=== PATIENT | male | born 1950 | race Hispanic/Latino ===

== ENCOUNTER 2016-10-19 10:57 | Emergency (ER) | payer SELFPAY ==
--- NOTE | 2016-10-19 12:03 | Emergency Department Report ---
ED Male HPI - General Stated complaint: UNIRNARY RETENTION Time Seen by Provider: 10/19/16 11:50 - History of Present Illness Initial comments: 66-year-old male with a history of prostate enlargement here with several days of difficulty urinating. Last night he developed inability to urinate at all. He had significant pain and abdominal distention. He denies fevers chills nausea or vomiting. Radiation: none Improves with: none Worsens with: none - Related Data Previous Rx's Medication Instructions Recorded Last Taken Type Tamsulosin [Flomax] 0.4 mg PO QDAY #30 cap 10/19/16 Unknown Rx Allergies Allergy/AdvReac Type Severity Reaction Status Date / Time No Known Allergies Allergy Unverified 10/19/16 13:05 ED Review of Systems ROS: Stated complaint: UNIRNARY RETENTION Other details as noted in HPI Comment: All other systems reviewed and negative Constitutional: denies: chills, fever Eyes: denies: eye pain, eye discharge, vision change ENT: denies: ear pain, throat pain Respiratory: denies: cough, shortness of breath, wheezing Cardiovascular: denies: chest pain, palpitations Endocrine: no symptoms reported Gastrointestinal: denies: abdominal pain, nausea, diarrhea Genitourinary: denies: urgency, dysuria Musculoskeletal: denies: back pain, joint swelling, arthralgia Skin: denies: rash, lesions Neurological: denies: headache, weakness, paresthesias Psychiatric: denies: anxiety, depression Hematological/Lymphatic: denies: easy bleeding, easy bruising ED Past Medical Hx - Past Medical History Additional medical history: Urinary retention - Family History Family history: no significant - Medications Home Medications: Home Medications Medication Instructions Recorded Confirmed Last Taken Type Tamsulosin [Flomax] 0.4 mg PO QDAY #30 cap 10/19/16 Unknown Rx ED Physical Exam - General General appearance: alert, in no apparent distress - Head Head exam: Present: atraumatic, normocephalic - Eye Eye exam: Present: normal appearance - ENT ENT exam: Present: mucous membranes moist - Neck Neck exam: Present: normal inspection - Respiratory Respiratory exam: Present: normal lung sounds bilaterally. Absent: respiratory distress - Cardiovascular Cardiovascular Exam: Present: regular rate, normal rhythm. Absent: systolic murmur, diastolic murmur, rubs, gallop - GI/Abdominal GI/Abdominal exam: Present: soft, normal bowel sounds - Rectal Rectal exam: Present: deferred - exam: Present: normal inspection - Extremities Exam Extremities exam: Present: normal inspection - Back Exam Back exam: Present: normal inspection - Neurological Exam Neurological exam: Present: alert, oriented X3 - Psychiatric Psychiatric exam: Present: normal affect, normal mood - Skin Skin exam: Present: warm, dry, intact, normal color. Absent: rash ED Course Vital Signs 10/19/16 10/19/16 10/19/16 11:59 12:16 15:02 Temperature 98.5 F Pulse Rate 72 74 Respiratory 16 18 Rate Blood Pressure 146/85 Blood Pressure 146/85 147/76 [Left] O2 Sat by Pulse 99 Oximetry ED Medical Decision Making - Lab Data Result diagrams: 10/19/16 13:55 Critical care attestation.: If time is entered above; I have spent that time in minutes in the direct care of this critically ill patient, excluding procedure time. ED Disposition Clinical Impression: Urinary retention Disposition: DC-01 TO HOME OR SELFCARE Is pt being admited?: No Condition: Stable Instructions: Urinary Retention in Men (ED) Prescriptions: Tamsulosin [Flomax] 0.4 mg PO QDAY #30 cap Referrals: PRIMARY CARE, [Primary Care Provider] - 3-5 Days LAILA GEORGE MD [Staff Physician] - 3-5 Days
[2016-10-19] MEDS ORDERED: NORMODYNE IV ONE (12:59)
[2016-10-19] MEDS ORDERED: ZOFRAN ONE (13:04)
[2016-10-19] MEDS: FLOMAX PO ONE (13:13)
[2016-10-19 15:13] LABS: Anion Gap 18 mmol/L; BUN/Creatinine Ratio 12.22; Blood Urea Nitrogen 11 mg/dL (9-20); Calcium 8.9 mg/dL (8.4-10.2); Carbon Dioxide 26 mmol/L (22-30); Chloride 100.3 mmol/L (98-107); Glucose 89 mg/dL (75-100); Potassium 4.7 mmol/L (3.6-5.0); Sodium 140 mmol/L (137-145)
[2016-10-19 17:46] VITALS: BP 143/73
== END 2016-10-19 17:47 | disposition home or self-care (01) ==
LOC: EDBD → ED 10:57
DX: R33.9 Retention of urine, unspecified (principal)
CPT/HCPCS: 36415; 51702; 80048; 99284; J2405